=== PATIENT | male | born 1935 | race Caucasian/White ===

== ENCOUNTER 2019-07-24 09:30 | Emergency (ER) | payer OTHER ==
[~2019-07-24] VITALS: Ht 172.7 cm; Wt 77.1 kg
[2019-07-24 09:30] VITALS: BP_SYST 108
--- NOTE | 2019-07-24 09:30 | NUR ---
BROUGHT IN BY [facility], PLACED IN BED #5 AND TRIAGED. REPORT GIVEN TO JO
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
[2019-07-24 10:17] LABS: BILIRUBIN,URINE 2+ (NEGATIVE); BLOOD, URINE 3+ (NEGATIVE); CLARITY/URINE SL HAZY (CLEAR); COLOR,URINE YELLOW (YELLOW); GLUCOSE,URINE NEGATIVE (NEGATIVE); KETONES,URINE 2+ (NEGATIVE); LEUKOCYTE ESTERASE ,URINE TRACE (NEGATIVE); NITRITE, URINE NEGATIVE (NEGATIVE); PH,URINE 5.5 (5.0-8.0); PROTEIN URINE 3+ (NEGATIVE)
[2019-07-24 10:23] LABS: BASOPHILS % (AUTO) 0.3 % (0.0-2.0); EOSINOPHILS # (AUTO) 0.1 K/uL (0.0-0.4); EOSINOPHILS % (AUTO) 1.2 % (0.0-4.0); HEMATOCRIT 40.1 % (36-54); HEMOGLOBIN 13.9 g/dL (14.0-18.0); LYMPHOCYTES # (AUTO) 0.5 K/uL (1.0-5.5); MEAN CORPUSCULAR HEMOGLOBIN 31 pg (27-31); MEAN CORPUSCULAR HGB CONC 35 % (32-36); MEAN CORPUSCULAR VOLUME 90 fL (79.0-98.0); MONOCYTES # (AUTO) 0.9 K/uL (0.0-1.0); MONOCYTES % (AUTO) 11.6 % (1.7-9.3); NEUTROPHILS # (AUTO) 6.6 K/uL (1.8-7.7); NEUTROPHILS % (AUTO) 80.9 % (40.0-70.0); PLATELET COUNT (AUTO) 166 K/uL (130-430); RED BLOOD CELL COUNT(AUTO) 4.48 MIL/uL (4.2-6.2); RED CELL DISTRIBUTION WIDTH 15.1 % (9.0-15.0); WHITE BLOOD COUNT (AUTO) 8.2 K/uL (4.8-10.8)
[2019-07-24 10:37] LABS: ANION GAP 8 (5-15); CALCIUM 9.3 mg/dL (8.4-11.0); CHLORIDE 110 mmol/L (98-107); CREATININE 1.31 mg/dL (0.55-1.30); GLUCOSE 101 mg/dL (70-99); POTASSIUM 3.3 mmol/L (3.5-5.1); SODIUM SERUM 145 mmol/L (136-145); UREA NITROGEN, BLOOD 22 mg/dL (8-21)
[2019-07-24 10:42] LABS: BACTERIA,URINE FEW /HPF (None Seen); RBC,URINE 20-50 /HPF (0-3)
[2019-07-24 10:42] LABS: ALANINE AMINOTRANSFERASE 31 U/L (12-78); ALBUMIN 2.8 g/dL (3.4-4.8); ASPARTATE AMINOTRANSFERASE 23 U/L (10-37); TOTAL BILIRUBIN 0.5 mg/dL (0.0-1.0)
[2019-07-24] MEDS ORDERED: POTASSIUM CHLORIDE 20 MEQ TAB.PRT.SR PO ONE (10:45)
[2019-07-24] MEDS ORDERED: CIPROFLOXACIN HCL 500 MG TABLET PO ONE (11:00)
--- NOTE | 2019-07-24 11:07 | NUR ---
SPOKE WITH ARYA AT [facility], ARYA STATES THAT THEY BELIEVE THAT DR MOY WANTS A PSYCH EVALUATION. CALL PLACED TO DR MOY.
--- NOTE | 2019-07-24 11:20 | NUR ---
Patient refuse medication administration, aggressive verbal refusal.
--- NOTE | 2019-07-24 11:45 | NUR ---
Attempted to administer oral medications, patient verbally.
--- NOTE | 2019-07-24 12:18 | NUR ---
Report to Lyssa CABRAL
--- NOTE | 2019-07-24 12:31 | NUR ---
Pt moved to bed to bed 06
--- NOTE | 2019-07-24 15:40 | NUR ---
Patient moved to bed 6. Addendum: 07/24/19 at 1607 by [email or web address] Moved to bed 5, not 6.
[2019-07-24 15:50] LABS: BARBITURATE, URINE NEGATIVE (NEG <=200); BENZODIAZEPINE, URINE POSITIVE (NEG <=150); CANNABINOID, URINE NEGATIVE (NEG <=50); COCAINE, URINE NEGATIVE (NEG <=150); METHAMPHETAMINES SCREEN,URINE NEGATIVE (NEG <=500); OPIATE, URINE NEGATIVE (NEG <=100); PHENCYCLIDINE SCREEN,URINE NEGATIVE (NEG <=25); UR TRICYCLIC ANTIDEPRESSANTS POSITIVE (NEG <=300); URINE AMPHETAMINE NEGATIVE (NEG <=500); URINE METHADONE NEGATIVE (NEG <=200); URINE OXYCODONE SCREEN NEGATIVE (NEG <=100); URINE PROPOXYPHENE SCREEN NEGATIVE (NEG <=300)
--- NOTE | 2019-07-24 16:31 | NUR ---
PET TEAM HERER FOR EVALUATION
--- NOTE | 2019-07-24 17:10 | NUR ---
Patient resting in [facility]
--- NOTE | 2019-07-24 17:33 | NUR ---
ER meal tray given
--- NOTE | 2019-07-24 18:32 | NUR ---
SPOKE WITH ANUP JACKSON AND PT IS TO RETURN TO [facility]. CALLED TO GIVE REPORT, SPOKE WITH CHARGE NURSE.
--- NOTE | 2019-07-24 19:10 | NUR ---
Patient given written and verbal discharge instructions and verbalizes understanding. ER MD discussed with patient the results and treatment provided. Patient in stable condition. ID arm band removed. Rx of Cipro given. Patient educated on pain management and to follow up with PMD. Pain Scale 0/10. Opportunity for questions provided and answered. Medication side effect fact sheet provided.
--- NOTE | 2019-07-24 19:11 | NUR ---
Patient to discharged to [facility] by [facility], report given to Gabo Noyola, Zipper Sewing Machine Operator .
[2019-07-24 19:13] VITALS: BP_SYST 121
== END 2019-07-24 19:11 | disposition home or self-care (01) ==
LOC: SED 09:30
DX: R45.6 Violent behavior (principal); E87.6 Hypokalemia; N39.0 Urinary tract infection, site not specified; I12.9 Hypertensive chronic kidney disease with stage 1 through stage 4 chronic kidney disease, or unspecified chronic kidney disease; E11.22 Type 2 diabetes mellitus with diabetic chronic kidney disease; N18.9 Chronic kidney disease, unspecified; N40.0 Benign prostatic hyperplasia without lower urinary tract symptoms; Z88.6 Allergy status to analgesic agent
CPT/HCPCS: 36415; 71045; 80053; 80307; 81000-TC; 85025; 87086; 99284